=== PATIENT | female | born 1950 ===

== ENCOUNTER 2025-03-30 07:30 | Outpatient (CLI) | payer MEDICARE, SELFPAY ==
[2025-03-30] MEDS: REGADENOSON 0.4 MG/5 ML SYRINGE IVP (09:26)
[2025-03-30 09:36] VITALS: BP 162/97; PULSE 68; RESP 16; O2SAT 98
[2025-03-30] MEDS: SODIUM CHLORIDE 0.9 % (FLUSH) 10 ML SYRINGE IVF (09:36)
--- NOTE | 2025-03-30 12:13 | W.PM.STED ---
Stress Test Note Date Date of test: 03/30/25 Providers Primary care provider: Mallory Chavarria Stress test physician: Aniket Mijares Stress Test Note Stress test ordered: Lexiscan Indication for test: Shortness of breath Stress test medicine: Lexiscan Results discussion: Patient is a very nice 75-year-old female who presents here for the above test, after discussion the risks benefits and side effects he would like to proceed. Cardiac stress test medical history form is reviewed in detail. Pretest EKG shows normal sinus rhythm with a right bundle bunch block configuration. Some mild ST wave abnormalities are noted. Ventricular rate was 66 blood pressure 175/101. Occasional PVCs are noted. Standard walking Lexiscan protocol was done for 5 minutes, she obtained a metabolic equivalent of 1.6 Mets with a maximum heart rate of 124. Maximum blood pressure is 164/92. During this test she had no chest pain shortness of breath or any other anginal equivalents, no new changes, on her tracing were noted. Subjectively she was negative. Impression: Negative electrographic portion of Lexiscan, subjectively negative. Follow up suggested: Await nuclear imaging, clinical correlation with this will be needed, patient left this testing facility in excellent condition there were no complications.
== END 2025-03-30 09:38 | disposition home or self-care (01) ==
PROVIDERS: PCP Physician Assistant Medical; Visit Provider Family Medicine
DX: R06.02 Shortness of breath (principal); R06.00 Dyspnea, unspecified; R07.9 Chest pain, unspecified; E78.00 Pure hypercholesterolemia, unspecified
CPT/HCPCS: 78452; 93016; 93017; A9500; J2785

== ENCOUNTER 2025-08-03 08:28 | Outpatient (CLI) | payer MEDICARE, SELFPAY | END 2025-08-03 08:29 | disposition home or self-care (01) | LOC: NFLDREF 08-05 16:14 | PROVIDERS: PCP Physician Assistant Medical; Referring Provider Physician Assistant Medical; Visit Provider Physician Assistant Medical | DX: Z00.00 Encounter for general adult medical examination without abnormal findings (principal) | CPT/HCPCS: 80061; 82947; 84443 ==